=== PATIENT | female | born 1965 | race Caucasian/White ===

== ENCOUNTER 2019-04-04 03:34 | Inpatient (IN) | payer OTHER ==
[~2019-04-04] VITALS: Ht 162.6 cm; Wt 81.9 kg
[~2019-04-04 03:34] MED LIST: CARAFATE; DILAUDID; PREMARIN; TRILEPTAL
--- NOTE | 2019-04-04 04:11 | NUR ---
PT PRESENTS TO ED FOR EVAL OF LOWER ABDOMINAL PAIN RADIATING TO LOWER BACK AND RECTAL BLEEDING X5 DAYS; PT ALSO C/O N/V X3 DAYS. ABDOMEN SOFT, TTP TO BLQ; BOWEL SOUNDS ACTIVE X4 QUADRANTS.
[2019-04-04 05:14] LABS: CALCIUM 8.5 mg/dL (8.5-10.1); CARBON DIOXIDE 21.3 mmol/L (21-32); CHLORIDE SERUM 108 mmol/L (98-107); GFR1 > 60 mL/min; GLUCOSE SERUM 120 mg/dL (74-106); POTASSIUM SERUM 3.4 mmol/L (3.5-5.1); SODIUM SERUM 141 mmol/L (136-145)
--- NOTE | 2019-04-04 05:17 | NUR ---
PT MEDICATED PER EMAR ORDERS. PLEASE SEE ORDER. PT IS RESTING IN POSITION OF COMFORT IN ED GURNEY. PT GURNEY IN LOWEST POSITION FOR PTS SAFETY. ZANDER CHEST RISE AND FALL NOTED. NO ACD
[2019-04-04 05:18] LABS: ALBUMIN 3.4 g/dL (3.4-5.0); ALKALINE PHOSPHATASE 76 U/L (46-116); ALT/SGPT 36 U/L (14-59); AST/SGOT 23 U/L (15-37); BILIRUBIN TOTAL 0.33 mg/dL (0.20-1.00); LIPASE 320 IU/L (73-393); TOTAL PROTEIN, SERUM 6.8 g/dL (6.4-8.2)
[2019-04-04 05:37] LABS: BASOPHIL % 0.6 % (0-2); PLATELET COUNT 177 x10^3mcL (130-400)
[2019-04-04 05:46] LABS: RED CELL DISTRIBUTION WIDTH 15.2 % (11.5-14.5)
[2019-04-04] MEDS ORDERED: CARVEDILOL3.125 M1 (06:01)
[2019-04-04] MEDS ORDERED: MAPAP9.6 MG/0.3 (06:01)
[2019-04-04] MEDS ORDERED: GOOD SENSE OMEP20 MG (06:01)
[2019-04-04] MEDS ORDERED: PROMETHAZINE25 M3 (06:01)
[2019-04-04] MEDS ORDERED: ALLERGY REL1 MG/1 ML (06:02)
[2019-04-04] MEDS ORDERED: HYDROXYZINE50 M1 (06:02)
[2019-04-04] MEDS ORDERED: BUSPIRONE HCL5 MG (06:02)
[2019-04-04] MEDS ORDERED: FLUOXETINE40 MG (06:03)
[2019-04-04] MEDS ORDERED: TRILEPTAL150 MG (06:03)
[2019-04-04] MEDS ORDERED: GABAPENTIN100 M2 (06:03)
--- NOTE | 2019-04-04 06:12 | NUR ---
PT REPORT GIVEN TO LUIS ENRIQUE LAUREN ON MED SURG FLOOR TO ASSUME PRIMARY CARE OF PT
--- NOTE | 2019-04-04 06:27 | NUR ---
PT WHEELED UPSTAIRS TO MED SURG FLOOR TO ROOM 219A. PT WAS TAKEN UPSTAIRS VIA ED GURNEY BY POLLY VALERIO. PT IS A/O X4. PT RESPS ARE E/U. NO INCIDENCE NOTED
--- NOTE | 2019-04-04 06:35 | NUR ---
RECEIVED PT FROM ED VIA RAYA, ACCOMPANY BY NURSE. PT AAOX4. DENIES DEAN/DIZZINESS. MED SURG PT DENIES CHEST PAIN. REJ PATENT. PT CC ABD PAIN AND RECTAL BLEEDING FOR THE PAST WEEK. PT REPORTS 9/10 PAIN [place], PT MEDICATED IN ED WITH SOME RELIEF. PT AMBULATORY. CALL BUTTON WITHIN REACH. SAFETY PRECAUTIONS IN PLACE. WILL MONITOR AND ENDORSE CARE TO DAY SHIFT RN.
[2019-04-04 06:45] VITALS: BP 135/72
--- NOTE | 2019-04-04 07:30 | NUR ---
SEEN IN BED AAOX4. BREATHING E/U ON ROOM AIR. ADMITS FOR GI BLEED. STATED LAST BM WAS THIS MORNING WATERY. STATED HAVING CRAMPING PAIN TO LOWER ABDOMEN. S/L NOTED TO RIGHT JUGULAR INTACT. ORIENTING TO ROOM ENVIRONMENT. CALL LIGHT PLACED WITHIN EASY REACH. SIDERAILS UP X2.
--- NOTE | 2019-04-04 07:35 | NUR ---
NO SIGNS OF DISTRESS NOTED. ENDORSED CARE TO DAY SHIFT RN, ALL QUESTIONS ADDRESSED.
[2019-04-04 08:59] VITALS: BP 142/72
--- NOTE | 2019-04-04 09:39 | NUR ---
STATED EVELIN IS NOT WORKING WITH CRAMPING PAIN ASKED FOR MORPHINE. REFUSED EKG AT THIS TIME. WATER QUALITY TECHNICIAN HAM MADE AWARE.
--- NOTE | 2019-04-04 10:18 | NUR ---
MORPHINE 1MG IVP SLOWLY GIVEN FOR ABDOMINAL PAIN, NO ADVERSE REACTION NOTED.
--- NOTE | 2019-04-04 10:34 | NUR ---
PATIENT STATED I DID NOT LIKE THE THE TREATMENT HERE I WANT TO LEAVE SOON POSSIBLE. METROLOGY SPECIALIST HAM AND INDUSTRIAL YARD BRAKE COUPLER SUKH NOTIFIED. PATIENT IS VOLUNTARILY LEAVING THE HOSPITAL WITHOUT BEING SEEN BY DOCTOR, AMA FORM SIGNED BY PATIENT WHO IS AWAKE,ALERT,ORIENTED X4. S/L TO RIGHT JUGULAR REMOVED WITH CATHETER INTACT, DRSG APPLIED. PATIENT DENIES DIZZINESS STATED PAIN IS OK NOW AFTER PAIN MEDS GIVEN EARLIER. PATIENT GET DRESSED BY HERSELF AND WALKED OUT ON THE HALLWAY STATED MY WILL PICK ME UP. NO ANY DISTRESS UPON LEAVING THE HOSPITAL.
[2019-04-04 14:24] LABS: microscopic required? NO
[2019-04-04 14:36] LABS: urine erythrocyte NEGATIVE (NEGATIVE)
[2019-04-04 14:48] LABS: AMPHETAMINE QUAL UR NONE DETECTED (See below)
== END 2019-04-04 10:35 | disposition left against medical advice (07) | DRG 249 ==
LOC: ED 03:34 → MU 05:41
PROVIDERS: Emergency Medicine; Internal Medicine; ADMIT Internal Medicine
DX: K52.9 Noninfective gastroenteritis and colitis, unspecified (principal); I50.9 Heart failure, unspecified; F17.210 Nicotine dependence, cigarettes, uncomplicated; D64.9 Anemia, unspecified; G40.909 Epilepsy, unspecified, not intractable, without status epilepticus; Z53.21 Procedure and treatment not carried out due to patient leaving prior to being seen by health care provider; J45.909 Unspecified asthma, uncomplicated; Z88.0 Allergy status to penicillin; Z88.2 Allergy status to sulfonamides; Z88.1 Allergy status to other antibiotic agents; Z88.6 Allergy status to analgesic agent; Z90.49 Acquired absence of other specified parts of digestive tract; Z90.710 Acquired absence of both cervix and uterus
CPT/HCPCS: C9113; G0378; G0480; J2270; J2405; J3010; J7030; Q0092